=== PATIENT | male | born 1980 | race African-American/Black ===

== ENCOUNTER 2021-08-08 19:13 | Emergency (ER) | payer SELFPAY ==
--- NOTE | 2021-08-08 19:22 | ER ---
Nurse's Notes [facility] Name: Vanessa Laurent Age: 40 yrs Sex: Male : 1980 Arrival Date: 08/08/2021 Time: 19:15 Bed Waiting Private MD: Diagnosis: ED Course: 08/08 19:15 Patient arrived in ED. [email or web address] Administered Medications: No medications were administered Outcome: 19:21 Patient left the ED. [email or web address] Signatures: Lindsey Escobedo RN RN [email or web address] Anaid Lozano
== END 2021-08-08 19:21 | disposition left against medical advice (07) ==
LOC: ER 19:13
DX: Z02.9 Encounter for administrative examinations, unspecified (principal)